=== PATIENT | female | born 1960 | race Caucasian/White ===

== ENCOUNTER 2016-10-16 14:02 | Emergency (ER) | payer OTHER ==
--- NOTE | 2016-10-16 15:06 | ED ORDER SUMMARY ---
..... Patient: STEFANO WALTER OrderSheet [facility] VisitID: [id number] [place] [address] 56y, F Registration Date/Time: 10/16/2016 ORDER SHEET Weight: 138.7 kg (stated) Allergies: No Known Drug Allergy GENERAL ORDERS: MEDICATION ORDERS: Toradol IM 60 mg (NOW) (14:52 10/16/2016 HBivens A.R.N.P.) (Ack 14:53 SStone R.N.) (15:04 SStone R.N.) Valium IM 5 mg (HIGH ALERT MEDICATION, NOW) (14:52 10/16/2016 HBivens A.R.N.P.) (Ack 14:53 SStone R.N.) (15:19 SStone R.N.) IV FLUIDS: ORDER SHEET NOTES: [Electronically signed by Francine Oconnell R.N. (15:37 10/16/2016)] [Electronically signed by Kayy BostonR.N.PJ Luis (15:58 10/16/2016)] [Electronically locked/signed by Francine Oconnell R.N. (15:37 10/16/2016)]
--- NOTE | 2016-10-16 15:06 | ED CLINICAL REPORT ---
Clinical Report - Physicians/Mid Levels [facility] [address] [place] [address] 10/16/2016 14:01 Patient: STEFANO WALTER Time Seen: 14:42; initial patient contact, initial documentation, patient care assumed. Arrived- By ambulance. Historian- patient. HISTORY OF PRESENT ILLNESS Chief Complaint: BACK PAIN. Onset was yesterday and it is still present. Modifying factors- worsened by standing, walking, rotation of the body to the right or left, bending over, lifting, coughing, laughing or taking deep breaths. Not relieved by anything. It is described as being severe and in the area of the right lower ribs, right mid lumbar spine and right flank. The quality is noted to be sharp and "pain". No radiation. No bladder dysfunction, bowel dysfunction, sensory loss or motor loss. Patient notes an injury but denies injury to the head or neck. Mechanism of injury- she was bending (getting out of bed and felt something). No other injury. Similar symptoms previously: None. Recent medical care: Not recently seen/assessed. REVIEW OF SYSTEMS No fever, difficulty with urination, urinary frequency, hematuria or difficulty breathing. No chest pain, abdominal pain, vomiting or diarrhea. All systems otherwise negative, except as recorded above. PAST HISTORY See nurses notes. PROBLEMS: Depression. --14:48 Francine Oconnell R.N. SOCIAL HISTORY Light tobacco smoker. Occasional alcohol use. No drug use. No recent travel. Is a local resident. FAMILY HISTORY Negative. ADDITIONAL NOTES The nursing notes have been reviewed with agreement regarding the chief complaint, HPI, ROS, PMH and patient medications and allergies. PHYSICAL EXAM Vital Signs: 10/16/2016 14:04 BP: 152/88. HR: 95. RR: 22. O2 saturation: 98%. Temp: 98.1 F. Pain level now: 9/10. Have been reviewed as normal and appear to be correct. Appearance: Alert. No acute distress. HEENT: Normal external inspection. Eyes: Pupils equal, round and reactive to light. Neck: Normal inspection. Neck nontender. Painless ROM. CVS: Heart sounds normal. Pulses normal. Respiratory: No respiratory distress. Breath sounds normal. Abdomen: No visible injury. Soft and nontender. Mildly obese. Back: Mild muscle spasm of the right posterior back. Abnormal inspection. Back tenderness present. Soft tissue tenderness in the right upper and mid lumbar area. No painless ROM. Moderately limited ROM in the back- in the lumbar spine: decreased flexion, extension, right lateral bending, left lateral bending and rotation to the right and left. No vertebral point tenderness or CVA tenderness. Skin: Skin warm and dry. Normal skin color. No rash. Normal skin turgor. Extremities: Extremities exhibit normal ROM. Extremities nontender. Neuro: Oriented X 3. Mood/affect normal. No motor deficit. No sensory deficit. PROGRESS AND PROCEDURES Patient counseled in person regarding the patient's stable condition and diagnosis. 15:06. Differential Diagnosis: I considered Musculo-skeletal strain, contusion, disk protrusion, vertebral fracture, sacroiliac joint strain, sciatica, osteoarthritis, lumbar spondylosis, spinal stenosis, ankylosing spondylitis, sacroiliac joint inflammation, abdominal aortic aneurysm, aortic dissection, spinal ischemia, referred pain and ureterolithiasis as a possible cause of back pain in this patient. This is a partial list of diagnoses considered. Above considerations are based on history, physical exam and reassessment. Differential diagnosis was discussed with patient. Disposition: Discharged home in good and improved condition (15:06). Condition: good and stable. CLINICAL IMPRESSION Acute pain in the middle and lower back. No radiation of back pain to the leg. INSTRUCTIONS Warnings: GENERAL WARNINGS: Return or contact your physician immediately if your condition worsens or changes unexpectedly, if not improving as expected, or if other problems arise. SPECIFICALLY, return if you develop numbness or incontinence of urine (loss of bladder control). Prescription Medications: Flexeril 10 mg: Take 1 orally every 8 hours as needed for muscle spasm. Dispense twenty (20). No refills. Substitution is permissible. Ultram 50 mg tablets: take 1-2 orally every 6 hours as needed for pain. Dispense twenty (20). No refills. Substitution is permissible. Follow-up: Follow up with your doctor in one week even if well. Call for an appointment. Summary of care provided to patient. Understanding of the discharge instructions verbalized by patient. (Electronically signed by Kayy Boston A.R.N.P. 10/16/2016 15:58)
--- NOTE | 2016-10-16 15:06 | ED ORDER SUMMARY ---
..... Patient: STEFANO WALTER OrderSheet [facility] VisitID: [id number] [place] [address] 56y, F Registration Date/Time: 10/16/2016 ORDER SHEET Weight: 138.7 kg (stated) Allergies: No Known Drug Allergy GENERAL ORDERS: MEDICATION ORDERS: Toradol IM 60 mg (NOW) (14:52 10/16/2016 HBivens A.R.N.P.) (Ack 14:53 SStone R.N.) (15:04 SStone R.N.) Valium IM 5 mg (HIGH ALERT MEDICATION, NOW) (14:52 10/16/2016 HBivens A.R.N.P.) (Ack 14:53 SStone R.N.) (15:19 SStone R.N.) IV FLUIDS: ORDER SHEET NOTES: [Electronically signed by Francine Oconnell R.N. (15:37 10/16/2016)] [Electronically signed by Kayy BostonR.N.PJ Luis (15:58 10/16/2016)] [Electronically locked/signed by Francine Oconnell R.N. (15:37 10/16/2016)]
--- NOTE | 2016-10-16 15:06 | ED NURSING NOTES ---
Clinical Report - Nurses [facility] [address] [place] [address] 10/16/2016 14:01 Patient: STEFANO WALTER TRIAGE Triage time 14:04. Acuity: LEVEL 4. Chief Complaint: BACK PAIN. --14:09 Francine Oconnell R.N. 14:04 10/16/16. BP: 152/88 taken on the right arm, while lying. HR: 95. RR: 22. O2 saturation: 98% on room air. Temp: 98.1 F. Pain level now: 04/06. --14:09 Francine Oconnell R.N. 14:10/16/16. BP: 149/127 taken on the left arm, while lying. --14:09 Francine Oconnell R.N. Weight: 138.7 kg stated. Height/Length: 69 inches Per Patient. BMI: 45.2. --14:08 Francine Oconnell R.N. Allergies No Known Drug Allergy. --14:08 Francine Oconnell R.N. History Arrived by EMS. Historian: patient. ( pt "tweaked" her back yesterday, was back to baseline this a.m. 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 PAST MEDICAL HX: Negative. SOCIAL HX: Smoker- current status unknown. Occasional alcohol use. No drug use. SELF HARM ASSESSMENT: A self harm assessment was performed. The patient answered "no" to the question "Do you have thoughts of harming or killing yourself?" and "Are you here because you tried to hurt yourself?". --14:09 Francine Oconnell R.N. PROBLEMS: Depression. --14:48 Francine Oconnell R.N. The following entry was modified by Francine Oconnell R.N., 14:48 <<STRICKEN ENTRY-- Dental caries. --14:46 Francine Oconnell R.N. --END STRIKE>>. ADDITIONAL SURGERIES: The following entry was struck by Francine Oconnell R.N., 14:49 Reason - wrong patient <<STRICKEN ENTRY-- Brain surgery- "brain stem bleeding". --14:46 Francine Oconnell R.N. --END STRIKE>> The following entry was struck by Francine Oconnell R.N., 14:49 Reason - wrong patient <<STRICKEN ENTRY-- Exploratory abdominal surgery 20 years ago. --14:46 Francine Oconnell R.N. --END STRIKE>> The following entry was struck by Francine Oconnell R.N., 14:49 Reason - wrong patient <<STRICKEN ENTRY-- Jaw surgery. --14:49 Francine Oconnell R.N. --END STRIKE>>. PHYSICAL ASSESSMENT GENERAL / NEURO / PSYCH: Alert. Oriented X 4. Appears in pain and anxious. RESPIRATORY: Respirations not labored. Breath sounds within normal limits. ( makes back pain worse to take deep breath). GI / : Abdomen soft and nontender. Bowel sounds within normal limits. EXTREMITIES: Sensation intact in extremities. ROM of extremities within normal limits. BACK: ( pain worsens with movement or deep inspiration.). Limited ROM of the back. --14:10 Francine Oconnell R.N. NURSING PROGRESS NOTES Reassurance given. Call light placed in reach. Side rails up x 2. Bed placed in lowest position. Patient ready for evaluation. Patient waiting for evaluation. --14:12 Francine Oconnell R.N. 14:10 10/16/16. BP: 140/104 taken on the right arm, while lying. --14:12 Francine Oconnell R.N. Cold pack applied. --14:13 Francine Oconnell R.N. 15:04 10/16/2016 Toradol (Ketorolac Tromethamine) IM 60 mg given. Given in the right gluteus ayde. Allergies verified and confirmed 5 rights. --15:04 Francine Oconnell R.N. ( Pt. given IM toradol, trying to find a ride home so she can receive valium.). --15:04 Francine Oconnell R.N. 15:14 10/16/2016 Valium (Diazepam) IM 5 mg given. Given in the right gluteus ayde. Allergies verified, confirmed 5 rights and sedative warning given to the patient. --15:19 Francine Oconnell R.N. DISPOSITION / DISCHARGE Departure time: 1520. Condition at departure: unchanged and stable. Discharge instructions provided and reviewed with the patient. Reviewed warnings (do not drive on pain medication or muscle relaxants). Reviewed medication(s) side effects information. Prescription(s) given to the patient. Patient verbalized understanding. Written instructions provided in Hungarian. The patient was discharged home and accompanied by family. She left the Emergency Department ambulatory and via private vehicle. Family member driving. --15:36 Francine Oconnell R.N. 15:20 10/16/16. BP: 138/98. HR: 82. RR: 20. O2 saturation: 95%. Pain level now: 810. --15:36 Francine Oconnell R.N. Locked/Released at 10/16/2016 15:37 by Francine Oconnell R.N.
--- NOTE | 2016-10-16 15:06 | ED NURSING NOTES ---
Clinical Report - Nurses [facility] [address] [place] [address] 10/16/2016 14:01 Patient: TSEFANO WALTER TRIAGE Triage time 14:04. Acuity: LEVEL 4. Chief Complaint: BACK PAIN. --14:09 Francine Oconnell R.N. 14:04 10/16/16. BP: 152/88 taken on the right arm, while lying. HR: 95. RR: 22. O2 saturation: 98% on room air. Temp: 98.1 F. Pain level now: 04/06. --14:09 Francine Oconnell R.N. 14:10/16/16. BP: 149/127 taken on the left arm, while lying. --14:09 Francine Oconnell R.N. Weight: 138.7 kg stated. Height/Length: 69 inches Per Patient. BMI: 45.2. --14:08 Francine Oconnell R.N. Allergies No Known Drug Allergy. --14:08 Francine Oconnell R.N. History Arrived by EMS. Historian: patient. ( pt "tweaked" her back yesterday, was back to baseline this a.m. 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 PAST MEDICAL HX: Negative. SOCIAL HX: Smoker- current status unknown. Occasional alcohol use. No drug use. SELF HARM ASSESSMENT: A self harm assessment was performed. The patient answered "no" to the question "Do you have thoughts of harming or killing yourself?" and "Are you here because you tried to hurt yourself?". --14:09 Francine Oconnell R.N. PROBLEMS: Depression. --14:48 Francine Oconnell R.N. The following entry was modified by Francine Oconnell R.N., 14:48 <<STRICKEN ENTRY-- Dental caries. --14:46 Francine Oconnell R.N. --END STRIKE>>. ADDITIONAL SURGERIES: The following entry was struck by Francine Oconnell R.N., 14:49 Reason - wrong patient <<STRICKEN ENTRY-- Brain surgery- "brain stem bleeding". --14:46 Francine Oconnell R.N. --END STRIKE>> The following entry was struck by Francine Oconnell R.N., 14:49 Reason - wrong patient <<STRICKEN ENTRY-- Exploratory abdominal surgery 20 years ago. --14:46 Francine Oconnell R.N. --END STRIKE>> The following entry was struck by Francine Oconnell R.N., 14:49 Reason - wrong patient <<STRICKEN ENTRY-- Jaw surgery. --14:49 Francine Oconnell R.N. --END STRIKE>>. PHYSICAL ASSESSMENT GENERAL / NEURO / PSYCH: Alert. Oriented X 4. Appears in pain and anxious. RESPIRATORY: Respirations not labored. Breath sounds within normal limits. ( makes back pain worse to take deep breath). GI / : Abdomen soft and nontender. Bowel sounds within normal limits. EXTREMITIES: Sensation intact in extremities. ROM of extremities within normal limits. BACK: ( pain worsens with movement or deep inspiration.). Limited ROM of the back. --14:10 Francine Oconnell R.N. NURSING PROGRESS NOTES Reassurance given. Call light placed in reach. Side rails up x 2. Bed placed in lowest position. Patient ready for evaluation. Patient waiting for evaluation. --14:12 Francine Oconnell R.N. 14:10 10/16/16. BP: 140/104 taken on the right arm, while lying. --14:12 Francine Oconnell R.N. Cold pack applied. --14:13 Francine Oconnell R.N. 15:04 10/16/2016 Toradol (Ketorolac Tromethamine) IM 60 mg given. Given in the right gluteus ayde. Allergies verified and confirmed 5 rights. --15:04 Francine Oconnell R.N. ( Pt. given IM toradol, trying to find a ride home so she can receive valium.). --15:04 Francine Oconnell R.N. 15:14 10/16/2016 Valium (Diazepam) IM 5 mg given. Given in the right gluteus ayde. Allergies verified, confirmed 5 rights and sedative warning given to the patient. --15:19 Francine Oconnell R.N. DISPOSITION / DISCHARGE Departure time: 1520. Condition at departure: unchanged and stable. Discharge instructions provided and reviewed with the patient. Reviewed warnings (do not drive on pain medication or muscle relaxants). Reviewed medication(s) side effects information. Prescription(s) given to the patient. Patient verbalized understanding. Written instructions provided in Syriac. The patient was discharged home and accompanied by family. She left the Emergency Department ambulatory and via private vehicle. Family member driving. --15:36 Francine Oconnell R.N. 15:20 10/16/16. BP: 138/98. HR: 82. RR: 20. O2 saturation: 95%. Pain level now: 810. --15:36 Francine Oconnell R.N. Locked/Released at 10/16/2016 15:37 by Francine Oconnell R.N.
--- NOTE | 2016-10-16 15:58 | ED MED RECONCILIATION SUMMARY ---
Patient: STEFANO WALTER Medication Reconciliation Report [facility] VisitID: [id number] [address] [place] [address] 56y, F Registration Date/Time: 10/16/2016 Weight: 138.7 kg Height/Length: 69 in. BMI: 45.2 ALLERGIES: No Known Drug Allergy The patient's Home Medications are listed below: Not obtained. The source(s) of the original Home Medication information: Not obtained. The following Medications were given to the patient in the Emergency Department: Toradol [IM] IM 60 mg, administered: 10/16/2016 3:04:00 PM Valium [IM] IM 5 mg, administered: 10/16/2016 3:14:00 PM The following Medications were prescribed to the patient: Flexeril 10 mg: Take 1 orally every 8 hours as needed for muscle spasm. Dispense twenty (20). No refills. Substitution is permissible. -- Kayy Boston A.R.N.P. Ultram 50 mg tablets: take 1-2 orally every 6 hours as needed for pain. Dispense twenty (20). No refills. Substitution is permissible. -- Kayy Boston A.R.N.P.
--- NOTE | 2016-10-16 15:58 | ED MAR SUMMARY ---
..... Medication Administration [facility] [address] [place] [address] Patient: STEFANO WALTER Visit ID: [id number] 56y, F Weight: 138.7 kg Height/Length: 69 in BMI: 45.2 ALLERGIES: No Known Drug Allergy Given 15:04 10/16/2016 Francine Oconnell R.N. Medication Administered: TORADOL [IM] (KETOROLAC TROMETHAMINE), Dose: 60 mg IM. Medication Ordered: Toradol IM 60 mg (NOW). Given 15:14 10/16/2016 Francine Oconnell R.NJ Luis Medication Administered: VALIUM [IM] (DIAZEPAM), Dose: 5 mg IM. Medication Ordered: Valium IM 5 mg (HIGH ALERT MEDICATION, NOW).
--- NOTE | 2016-10-16 15:58 | ED MAR SUMMARY ---
..... Medication Administration Record [facility] [address] [place] [address] Patient: STEFANO WALTER Visit ID: [id number] 56y, F Weight: 138.7 kg Height/Length: 69 in BMI: 45.2 ALLERGIES: No Known Drug Allergy Given 15:04 10/16/2016 Francine Oconnell R.N. Medication Administered: TORADOL [IM] (KETOROLAC TROMETHAMINE), Dose: 60 mg IM. Medication Ordered: Toradol IM 60 mg (NOW). Given 15:14 10/16/2016 Francine Oconnell R.NJ Luis Medication Administered: VALIUM [IM] (DIAZEPAM), Dose: 5 mg IM. Medication Ordered: Valium IM 5 mg (HIGH ALERT MEDICATION, NOW).
--- NOTE | 2016-10-16 15:58 | ED MED RECONCILIATION SUMMARY ---
Patient: STEFANO WALTER Medication Reconciliation Report [facility] VisitID: [id number] [address] [place] [address] 56y, F Registration Date/Time: 10/16/2016 Weight: 138.7 kg Height/Length: 69 in. BMI: 45.2 ALLERGIES: No Known Drug Allergy The patient's Home Medications are listed below: Not obtained. The source(s) of the original Home Medication information: Not obtained. The following Medications were given to the patient in the Emergency Department: Toradol [IM] IM 60 mg, administered: 10/16/2016 3:04:00 PM Valium [IM] IM 5 mg, administered: 10/16/2016 3:14:00 PM The following Medications were prescribed to the patient: Flexeril 10 mg: Take 1 orally every 8 hours as needed for muscle spasm. Dispense twenty (20). No refills. Substitution is permissible. -- Kayy Boston A.R.N.P. Ultram 50 mg tablets: take 1-2 orally every 6 hours as needed for pain. Dispense twenty (20). No refills. Substitution is permissible. -- Kayy Boston A.R.N.P.
--- NOTE | 2016-10-16 15:58 | ED DISCHARGE INSTRUCTIONS ---
Patient: STEFANO WALTER General Instructions [facility] VisitID: [id number] [place] [address] 56y, F Registration Date/Time: 10/16/2016 Acute pain in the middle and lower back. No radiation of back pain to the leg. INSTRUCTIONS Warnings: GENERAL WARNINGS: Return or contact your physician immediately if your condition worsens or changes unexpectedly, if not improving as expected, or if other problems arise. SPECIFICALLY, return if you develop numbness or incontinence of urine (loss of bladder control). Prescription Medications: Flexeril 10 mg: Take 1 orally every 8 hours as needed for muscle spasm. Dispense twenty (20). No refills. Substitution is permissible. Ultram 50 mg tablets: take 1-2 orally every 6 hours as needed for pain. Dispense twenty (20). No refills. Substitution is permissible. Follow-up: Follow up with your doctor in one week even if well. Call for an appointment. Summary of care provided to patient. Understanding of the discharge instructions verbalized by patient. ADDITIONAL INFORMATION Pain, Uncertain Cause [Acute] Pain is the bodys way of calling attention to a problem. Pain can be caused by many conditions - some minor, some serious. In your case, we were not able to find the exact cause for your pain. However, at this time there is no sign of any serious or life-threatening illness causing your pain. Sometimes more tests will be needed to determine the cause. Other times, just allowing more time to pass will either make it clear what the problem is, or the pain will go away by itself. Home Care: You may use acetaminophen (Tylenol) or ibuprofen (Motrin, Advil) to control pain, unless another medicine was prescribed. [NOTE: If you have chronic liver or kidney disease or ever had a stomach ulcer or GI bleeding, talk with your doctor before using these medicines.] Follow Up with your doctor or as advised by our staff. Get Prompt Medical Attention if any of the following occur: Changes in the pattern of your pain Appearance of new symptoms Fever of 100.4F (38C) or higher, or as directed by your healthcare provider Myositis Myositis is a class of rare auto-immune diseases that cause chronic inflammation. These include Polymyositis, which affects muscles throughout the body, and Dermatomyositis, which affects both skin and muscle. Other forms can affect the joints, heart, lungs and intestines. This condition can be hard to diagnose, because it resembles other diseases. Immune cells in the body usually attack and destroy viruses and harmful bacteria. In myositis, for unknown reasons, the immune system begins attacking the skin and/or muscles. Sometimes other parts of the body are also affected. Myositis may be triggered by exposure to certain chemicals, drugs, or viruses. It is important that you tell your doctor about any [id number] drug use, infection, or exposure to other substances that occurred near the time when your symptoms started. Stopping the exposure or treating the infection may stop myositis. The symptoms of myositis can be very different depending on the type you have. Common symptoms are muscle weakness (especially muscles of the hips and shoulders), loss of energy (fatigue), rash or changes in the skin, and arthritis (swollen, painful joints). You may have trouble climbing stairs, getting out of chairs, lifting heavy things, or raising your arms overhead. Sometimes the muscles ache and become tender. The swallowing muscles may also be affected. The disease usually starts slowly and may take months or years to develop. You may notice that you have periods when your symptoms get worse (active disease) followed by periods where symptoms get better or go away completely (remission). Treatment options include medication, rest, physical therapy and exercise. Your doctor may prescribe oral steroids or drugs that suppress the immune system in order to slow down the progress of the disease. Home Care: If you were prescribed a medication, take it as directed. You may use acetaminophen (Tylenol) or ibuprofen (Motrin, Advil) to control pain, unless another medicine was prescribed. [NOTE: If you have chronic liver or kidney disease or ever had a stomach ulcer or GI bleeding, talk with your doctor before using these medicines.] Dont take ibuprofen or other NSAIDs (non-steroidal anti-inflammatory drugs) if you were prescribed prednisone. Remain physically active. Light exercise and physical activity are helpful to keep your muscles in the best shape possible. Talk to your doctor about an exercise plan that is right for you. If you are having muscle aches, rest as needed. Follow Up with your doctor or as advised by our staff. For more information contact: Myositis Association, www.myositis.org [employer] [phone], www.arthritis.org Return Promptly or contact your doctor if any of the following occur: Change in bowel or bladder habits Blood in the stool (black or red color) Unexpected weight loss A lump in the breast or elsewhere Difficulty swallowing Change in the appearance of a wart or mole Persistent cough, hoarseness or coughing up blood Night sweats or unexplained fevers Shortness of breath Arthralgia Arthralgia is the term for pain in or around the joint. It is not a disease but a symptom. This may involve one or more joints. Sometimes arthralgias move from joint to joint. There are many causes for joint pain. These include: Injury Osteoarthritis (from wearing out of the joint surface) Rheumatoid arthritis (an autoimmune disease) Gout (inflammation of the joint due to crystals in the joint fluid) Infection inside the joint Bursitis (inflammation of the fluid-filled sacs around the joint) Lupus and other collagen-vascular disease Home Care: Rest the involved joint(s) until your symptoms improve. You may use acetaminophen (Tylenol) or ibuprofen (Motrin, Advil) to control pain, unless another pain medicine was prescribed. [NOTE: If you have chronic liver or kidney disease or ever had a stomach ulcer or GI bleeding, talk with your doctor before using these medicines.] Follow Up with your doctor or as advised by our staff. [NOTE: If you had an X-ray it will be reviewed by a specialist. You will be notified of any new findings that may affect your care.] Return Promptly or contact your doctor if any of the following occurs: Pain increases Pain moves to other joints New rash appears Fever of 100.4F (38C) or higher, or as directed by your healthcare provider Cyclobenzaprine Hydrochloride Oral tablet What is this medicine? CYCLOBENZAPRINE (sye kloe MARK za preen) is a muscle relaxer. It is used to treat muscle pain, spasms, and stiffness. How should I use this medicine? Take this medicine by mouth with a glass of water. Follow the directions on the prescription label. If this medicine upsets your stomach, take it with food or milk. Take your medicine at regular intervals. Do not take it more often than directed. Talk to your director of dietary regarding the use of this medicine in children. Special care may be needed. What side effects may I notice from receiving this medicine? Side effects that you should report to your doctor or health primary care nurse practitioner as soon as possible: allergic reactions like skin rash, itching or hives, swelling of the face, lips, or tongue chest pain fast heartbeat hallucinations seizures vomiting Side effects that usually do not require medical attention (report to your doctor or health primary care nurse practitioner if they continue or are bothersome): headache What may interact with this medicine? Do not take this medicine with any of the following medications: cisapride droperidol flecainide grepafloxacin halofantrine levomethadyl MAOIs like Carbex, Eldepryl, Marplan, Nardil, and Parnate nilotinib pimozide probucol sertindole This medicine may also interact with the following medications: abarelix alcohol contrast dyes dolasetron guanethidine medicines for cancer medicines for depression, anxiety, or psychotic disturbances medicines to treat an irregular heartbeat medicines used for sleep or numbness during surgery or procedure methadone octreotide ondansetron palonosetron phenothiazines like chlorpromazine, mesoridazine, prochlorperazine, thioridazine some medicines for infection like alfuzosin, chloroquine, clarithromycin, levofloxacin, mefloquine, pentamidine, troleandomycin tramadol vardenafil What if I miss a dose? If you miss a dose, take it as soon as you can. If it is almost time for your next dose, take only that dose. Do not take double or extra doses. Where should I keep my medicine? Keep out of the reach of children. Store at room temperature between 15 and 30 degrees C (59 and 86 degrees F). Keep container tightly closed. Throw away any unused medicine after the expiration date. What should I tell my health care provider before I take this medicine? They need to know if you have any of these conditions: heart disease, irregular heartbeat, or previous heart attack liver disease thyroid problem an unusual or allergic reaction to cyclobenzaprine, tricyclic antidepressants, lactose, other medicines, foods, dyes, or preservatives or trying to get breast-feeding What should I watch for while using this medicine? Check with your doctor or health primary care nurse practitioner if your condition does not improve within 1 to 3 weeks. You may get drowsy or dizzy when you first start taking the medicine or change doses. Do not drive, use machinery, or do anything that may be dangerous until you know how the medicine affects you. Stand or sit up slowly. Your mouth may get dry. Drinking water, chewing sugarless gum, or sucking on hard candy may help. Tramadol Hydrochloride Oral tablet What is this medicine? TRAMADOL (TRA ma dole) is a pain reliever. It is used to treat moderate to severe pain in adults. How should I use this medicine? Take this medicine by mouth with a full glass of water. Follow the directions on the prescription label. If the medicine upsets your stomach, take it with food or milk. Do not take more medicine than you are told to take. Talk to your director of dietary regarding the use of this medicine in children. Special care may be needed. What side effects may I notice from receiving this medicine? Side effects that you should report to your doctor or health primary care nurse practitioner as soon as possible: allergic reactions like skin rash, itching or hives, swelling of the face, lips, or tongue breathing difficulties, wheezing confusion itching light headedness or fainting spells redness, blistering, peeling or loosening of the skin, including inside the mouth seizures Side effects that usually do not require medical attention (report to your doctor or health primary care nurse practitioner if they continue or are bothersome): constipation dizziness drowsiness headache nausea, vomiting What may interact with this medicine? Do not take this medicine with any of the following medications: MAOIs like Carbex, Eldepryl, Marplan, Nardil, and Parnate This medicine may also interact with the following medications: alcohol or medicines that contain alcohol antihistamines benzodiazepines bupropion carbamazepine or oxcarbazepine clozapine cyclobenzaprine digoxin furazolidone linezolid medicines for depression, anxiety, or psychotic disturbances medicines for migraine headache like almotriptan, eletriptan, frovatriptan, naratriptan, rizatriptan, sumatriptan, zolmitriptan medicines for pain like pentazocine, buprenorphine, butorphanol, meperidine, nalbuphine, and propoxyphene medicines for sleep muscle relaxants naltrexone phenobarbital phenothiazines like perphenazine, thioridazine, chlorpromazine, mesoridazine, fluphenazine, prochlorperazine, promazine, and trifluoperazine procarbazine warfarin What if I miss a dose? If you miss a dose, take it as soon as you can. If it is almost time for your next dose, take only that dose. Do not take double or extra doses. Where should I keep my medicine? Keep out of the reach of children. Store at room temperature between 15 and 30 degrees C (59 and 86 degrees F). Keep container tightly closed. Throw away any unused medicine after the expiration date. What should I tell my health care provider before I take this medicine? They need to know if you have any of these conditions: brain tumor depression drug abuse or addiction head injury if you frequently drink alcohol containing drinks kidney disease or trouble passing urine liver disease lung disease, asthma, or breathing problems seizures or epilepsy suicidal thoughts, plans, or attempt; a previous suicide attempt by you or a family member an unusual or allergic reaction to tramadol, codeine, other medicines, foods, dyes, or preservatives or trying to get breast-feeding What should I watch for while using this medicine? Tell your doctor or health primary care nurse practitioner if your pain does not go away, if it gets worse, or if you have new or a different type of pain. You may develop tolerance to the medicine. Tolerance means that you will need a higher dose of the medicine for pain relief. Tolerance is normal and is expected if you take this medicine for a long time. Do not suddenly stop taking your medicine because you may develop a severe reaction. Your body becomes used to the medicine. This does NOT mean you are addicted. Addiction is a behavior related to getting and using a drug for a non-medical reason. If you have pain, you have a medical reason to take pain medicine. Your doctor will tell you how much medicine to take. If your doctor wants you to stop the medicine, the dose will be slowly lowered over time to avoid any side effects. You may get drowsy or dizzy. Do not drive, use machinery, or do anything that needs mental alertness until you know how this medicine affects you. Do not stand or sit up quickly, especially if you are an older patient. This reduces the risk of dizzy or fainting spells. Alcohol can increase or decrease the effects of this medicine. Avoid alcoholic drinks. You may have constipation. Try to have a bowel movement at least every 2 to 3 days. If you do not have a bowel movement for 3 days, call your doctor or health primary care nurse practitioner. Your mouth may get dry. Chewing sugarless gum or sucking hard candy, and drinking plenty of water may help. Contact your doctor if the problem does not go away or is severe. You have been given the following additional information: Pain, Uncertain Cause (Acute) Myositis Arthralgia Cyclobenzaprine Hydrochloride Oral tablet Tramadol Hydrochloride Oral tablet (Electronically signed by Kayy Boston A.R.N.P. 10/16/2016 15:58)
== END 2016-10-16 15:20 | disposition home or self-care (01) ==
LOC: ED SRH 14:02
DX: M54.5 Low back pain (principal); F17.210 Nicotine dependence, cigarettes, uncomplicated